=== PATIENT | female | born 1945 | race Caucasian/White ===

== ENCOUNTER 2021-10-10 11:42 | Day surgery (SDC) | payer MEDICARE, OTHER ==
[~2021-10-10] VITALS: Ht 147.3 cm; Wt 70.8 kg
[2021-10-10] VITALS (9 sets, daily range): BP systolic 92–123; BP diastolic 51–73; PULSE 70–85; TEMP 97.4
[~2021-10-10 11:42] MED LIST: FOSAMAX 70MG TA70 MG PO; HCTZ 25MG25 MG PO; LISINOPRIL20 MG PO; LORTAB 5/500 501 TAB PO; PRILOSEC 20MG20 MG PO; RITALIN10 MG PO; SINGULAIR 110 MG/TAB PO; SYNTHROID0.125 MG/T PO
[2021-10-10 12:54] LABS: HEMOGLOBIN 12.1 g/dl (12.5-16.0); MEAN CELL VOLUME 94 fl (80.0-100.0); MEAN CORPUSCULAR HEMOGLOBIN 32 pg (27-31); MEAN CORPUSCULAR HGB CONC 34 g/dl (33.0-37.0); MEAN PLATELET VOLUME 9.2 fl (7.4-10.4); PLATELET COUNT 296 K/mm3 (130-400); RED BLOOD COUNT 3.77 M/mm3 (4.10-5.30); REDCELL DISTRIBUTION WIDTH-CV 12.7 % (11.5-14.5)
[2021-10-10] MEDS ORDERED: WELLBUTRIN SR150 M1 PO (12:58)
[2021-10-10] MEDS ORDERED: NEURONTIN300 MG/CAP PO (12:58)
[2021-10-10] MEDS ORDERED: XANAX 0.5MG0.5 MG PO (12:59)
[2021-10-10] MEDS ORDERED: CRESTOR20 MG PO (13:00)
[2021-10-10] MEDS ORDERED: CELEXA 20MG20 MG/TAB PO (13:00)
[2021-10-10] MEDS ORDERED: JARDIANCE10 PO (13:01)
[2021-10-10] MEDS ORDERED: RT ADVAIR 528 DISKUS IH (13:02)
[2021-10-10] MEDS ORDERED: MASON NATURAL2000 IU PO (13:02)
[2021-10-10 13:04] LABS: HEMATOCRIT 35.3 % (37.0-47.0); INR 1.1 (0.8-3.0); PROTHROMBIN TIME 12.6 SECONDS (9.7-12.8)
[2021-10-10] MEDS ORDERED: RT SPIRIVA18 MCG IH (13:04)
[2021-10-10] MEDS ORDERED: ASPIRIN E.C. 8181 MG PO (13:04)
[2021-10-10] MEDS ORDERED: ALBUTEROL0.83 MG/ML IH (13:05)
[2021-10-10] MEDS ORDERED: VENTOLIN0.09 MG IH (13:05)
[2021-10-10 13:11] LABS: CALCIUM 9.4 mg/dL (8.4-10.2); CREATININE, serum 0.99 mg/dL (0.57-1.11); POTASSIUM 4.2 mmol/L (3.5-4.5)
--- NOTE | 2021-10-10 15:15 | NUR ---
Pt back to [facility] after left heart cath. Pt is drowsy, oriented, pwd, reg and unlabored resps. Pt is on monitor. TR band to rt wrist, cms intact distl. pt updated on poc. call light in reach. lunch ordered.
[2021-10-10] MEDS ORDERED: PLAVIX 75MG TAB75 MG PO (15:43)
--- NOTE | 2021-10-10 18:21 | NUR ---
Pt has done well during her recovery. TR band has been deflated with no problem, site dressed with bandaid, folded 2x2 and coban. cms intact distal. I have reviewed dc,rx and fu instructions with pt who denies any questions. Pt is amb with steady gait from rm 17 to bathroom and back. She has changed into her clothes and is ready to go. IV was dc'd with cath intact, dressing applied.
--- NOTE | 2021-10-10 18:35 | NUR ---
PT TO EXIT VIA WHEELCHAIR
== END 2021-10-10 19:14 | disposition home or self-care (01) ==
LOC: COL.CAR 11:42
PROVIDERS: Internal Medicine Interventional Cardiology
DX: I25.10 Atherosclerotic heart disease of native coronary artery without angina pectoris (principal); I50.30 Unspecified diastolic (congestive) heart failure; I35.0 Nonrheumatic aortic (valve) stenosis; N18.9 Chronic kidney disease, unspecified; I77.3 Arterial fibromuscular dysplasia; I95.9 Hypotension, unspecified
CPT/HCPCS: C1769; J1644; J2250; J3010; Q9967